=== PATIENT | male | born 1960 | race Two or more races ===

== ENCOUNTER 2024-08-19 13:40 | Outpatient (AMB) | payer BC, MEDICAID, SELFPAY ==
[2024-08-19 14:16] VITALS: BP 138/77; PULSE 82; RESP 18; TEMP 36.6; O2SAT 95; BMI 30.5
--- NOTE | 2024-08-19 14:16 | ACNOTE_ITS ---
Vital Signs 08/19/24 14:16 Height 1.8 m Height Method Stated Weight 99.45 kg Weight Measurement Method Standing Scale BMI 30.5 BP 138/77 H Blood Pressure Source Automatic Cuff Blood Pressure Location Left Upper Arm Position Sitting Respiration 18 Pulse 82 Pulse Source Monitor Temp 98 F Temp Source Oral Pulse Oximetry (%) 95 Oxygen Delivery Method Room Air Allergies/Meds Allergies & Medications Allergies No Known Allergies Allergy (Verified 08/19/24 14:17) Medication Reconciliation metformin 500 mg tablet 500 mg PO DAILY 02/08/24 [History Confirmed 08/19/24] MA Intake Visit Data Collection New Patient or Established: Established Patient (seen at [facility] within 3 years) Seen by Clinical Staff ONLY (RN/MA): No Reason for Visit:: ESTABLISH CARE Pain Present Currently: No Pain scale:: 0 Pain Scale Used: Lara-Ceballos/Numerical Demonstrator Knitting Required: No PCP or OBGYN visit in last 3 months: Yes Do You Feel Safe at Home: Yes Smoking Status Smoking Status: Never smoker Immunization / Flu Flu Vaccine in the Last 12 Months: Yes Flu Vaccine Exclusion Criteria: No Exclusion Criteria Past Medical History Past Medical History NEUROLOGIC: Negative Neurological Disorders, Seizures or Epilepsy CARDIAC: Negative Cardiac Disorders, Hypercholesterolemia, Congestive Heart Failure or Hypertension RESPIRATORY: Negative Chronic Obstructive Pulmonary Disease (COPD), Asthma or Pneumonia GASTROINTESTINAL: Negative Gastrointestinal Disorders GENITOURINARY: Negative Genitourinary Disorders or Renal Disease MUSCULOSKELETAL: Negative Arthritis, Fibromyalgia or Fractures ENDOCRINE: Negative Diabetes Mellitus Type 1 or Diabetes Mellitus Type 2 PSYCHO/SOCIAL: Negative Depression or Anxiety OTHER HISTORY: Negative Blood Transfusions or Anesthesia Reactions Social History SMOKING STATUS: Smoking status: Never smoker ALCOHOL: Alcohol Intake: Never Patient Portal Questionaires PHQ-9 PHQ-2 Over the last 2 weeks, how often have you been bothered by any of the following problems? 1. Little interest or pleasure in doing things: not at all 2. Feeling down, depressed, or hopeless: not at all Total score: 0 PHQ-9 3. Trouble falling or staying asleep, or sleeping too much: Not at all 4. Feeling tired or having little energy: Not at all 5. Poor appetite or overeating: Not at all 6. Feeling bad about yourself - or that you are a failure or have let yourself or your family down: Not at all 7. Trouble concentrating on things, such as reading the newspaper or watching television: Not at all 8. Moving or speaking so slowly that other people could have noticed? - Or the opposite - being so fidgety or restless that you have been moving around a lot more than usual: not at all 9. Thoughts that you would be better off or of hurting yourself in some way: Not at all Total score: 0 Source: Developed by Drs. Robby Hand, Sarah Florez, Cirilo Angulo and colleagues, with an educational anel from [employer]. Depression screen completed yes Social History Tobacco History Smoking Status: Never smoker Alcohol History Alcohol Intake: Never Domestic Abuse History Do You Feel Safe at Home: Yes Review of Systems Report any current symptoms Only answer those that you have currently: Past Medical History Past Medical History Have you ever been diagnosed with any of the following: Neurological Problems Seizures: No Epilepsy: No Cardiology Problems Hypercholesterolemia: No Congestive Heart Failure: No Hypertension: No Respiratory Problems Chronic Obstructive Pulmonary Disease (COPD): No Asthma: No Pneumonia: No Genital/Urinary Problems Renal Disease: No Musculoskeletal Problems Arthritis: No Fibromyalgia: No Fractures: No Endocrine Problems Diabetes Mellitus Type 1: No Diabetes Mellitus Type 2: No Psychologic Problems Depression: No Anxiety: No Other Problems Blood Transfusions: No Anesthesia Reactions: No History of Present Illness HPI Narrative 63 M with PMH of prediabetes and HLD was seen at the [facility] to establish health care. Patient states he recently changed insurance and had to find a new provider. Patient has no complaints and states he has been fairly healthy recently and trying to loose some weight. He stated he lost around 15lbs and has been taking his metformin which currently is his only medication. He had a colonoscopy in 02/2024 that had a polyp and showed a tubular adenoma therefore needs colonoscopy in 5 years (2028). He mentioned his tells him he snores andhe also wakes up with a dry mouth and has daytime sleepiness. At this time he had no other complaints. Review of Systems Review of Systems Narrative Review of Systems: Constitutional: Denies sweats, Denies weight loss/gain, Denies fever, Denies chills. HEENT: Denies hearing loss, Denies ear pain, Denies postnasal drip, Denies double vision, Denies blurry vision. Respiratory: Denies shortness of breath, Denies cough, Denies wheezing. Cardiovascular: Denies chest pain, Denies palpitations, Denies sudden loss of consciousness. GI: Denies blood in stool, Denies constipation, Denies abdominal pain, Denies difficulty swallowing, Denies nausea or vomit. : Denies urinary incontinence, Denies pain while urinating, Denies increased urinary frequency. MSK: Denies joint pain, Denies joint swelling, Denies numbness. Skin: Denies rash, Denies itching, Denies easy bruising. Neuro: Denies headaches, Denies dizziness, Denies seizures. Objective/Exam General General Appearance: alert, in no apparent distress, comfortable, cooperative and healthy appearing Head Head exam: atraumatic, normocephalic and normal inspection Eye Eye exam: Present normal appearance, PERRL and EOMI ENT ENT exam: Present normal exam, normal oropharynx, mucous membranes moist and other (Mallampati 4 ) Neck Neck exam: Present normal inspection and full ROM Resp Respiratory exam: Present normal lung sounds bilaterally Card Cardiovascular exam: Present regular rate, normal rhythm and normal heart sounds Abdominal Abdominal exam: Present soft and normal bowel sounds Extremities Extremities exam: Present normal inspection, full ROM and normal capillary refill Back Back exam: Present normal inspection and full ROM Neuro Neurological exam: Present alert, oriented X3, CN II-XII intact and normal gait Psych Psychiatric exam: Present normal affect and normal mood Skin Skin exam: Present warm, intact and normal color Assessment & Plan Diagnosis / Problem List (1) Pre-diabetes: Status: Acute Assessment & Plan: last a1c 6.4 in 11/2023 Takes metformin 500mg daily Plan: Will get labs (A1c and CMP) to better assess current glucose control regimen Continue metformin 500 daily for now (2) Hyperlipidemia: Status: Acute Assessment & Plan: Last lipid panel showed elevated LDL, cholesterol, and triglycerides Not on any medication Plan: Ordered lipid panel Will start statin on next visit (3) Prostate cancer screening: Status: Acute Assessment & Plan: Patient does not have any family history, but wanted to have screening Plan: Ordered PSA levels Plan F/U in 1 month for lab results Case disclosed with Attending Dr. Monse Ayoub PGY1 Office Procedures [facility] Level of Care Nursing/Assessment Patient Status: Established Patient Nursing Assessment/Reassessment: Medication Reconciliation, Update PMH in EMR and Vital Signs Coordination of Care: Complex Care and Chronic Disease 1-5, Consent,records obtained, informed consent, Education Simp Pt/Fam, Lab and Imaging orders, Results/Orders obtained and Staff clarify orders Established Patient Charge Established Patient Point Assignment: 105 Established Patient Point Charge: EP Level 3 (80-115)
== END 2024-08-19 14:31 | disposition home or self-care (01) ==
LOC: HODAHC 13:40
PROVIDERS: Supervising Provider Internal Medicine
DX: R73.03 Prediabetes (principal); E78.5 Hyperlipidemia, unspecified; Z79.84 Long term (current) use of oral hypoglycemic drugs
CPT/HCPCS: 99213; G0463

== ENCOUNTER 2024-09-24 08:50 | Outpatient (AMB) | payer MEDICAID, SELFPAY ==
[2024-09-24 09:12] VITALS: BP 137/74; PULSE 70; RESP 18; TEMP 36.8; O2SAT 96; BMI 30.4
--- NOTE | 2024-09-24 09:12 | ACNOTE_ITS ---
Vital Signs 09/24/24 09:12 Height 1.8 m Height Method Stated Weight 98.486 kg Weight Measurement Method Standing Scale BMI 30.4 BP 137/74 H Blood Pressure Source Automatic Cuff Blood Pressure Location Right Upper Arm Position Sitting Respiration 18 Pulse 70 Pulse Source Monitor Temp 98.2 F Temp Source Temporal Artery Scan Pulse Oximetry (%) 96 Oxygen Delivery Method Room Air Allergies/Meds Allergies & Medications Allergies No Known Allergies Allergy (Verified 09/24/24 09:12) Medication Reconciliation atorvastatin 40 mg tablet 40 mg PO QDAY 1 month #30 tabs 09/24/24 [Rx] metformin 500 mg tablet 500 mg PO DAILY 3 months #90 tabs 09/24/24 [Rx] MA Intake Visit Data Collection New Patient or Established: Established Patient (seen at [facility] within 3 years) Seen by Clinical Staff ONLY (RN/MA): No Pain Present Currently: No Pain scale:: 0 Pain Scale Used: Lara-Ceballos/Numerical Licensed Staff Mft Required: No PCP or OBGYN visit in last 3 months: No Hx Now: No Do You Feel Safe at Home: Yes Authorities Contacted: N/A Smoking Status Smoking Status: Never smoker Immunization / Flu Flu Vaccine in the Last 12 Months: No Flu Vaccine Exclusion Criteria: No Exclusion Criteria Past Medical History Past Medical History NEUROLOGIC: Negative Neurological Disorders, Seizures or Epilepsy CARDIAC: Negative Cardiac Disorders, Hypercholesterolemia, Congestive Heart Failure or Hypertension RESPIRATORY: Negative Chronic Obstructive Pulmonary Disease (COPD), Asthma or Pneumonia GASTROINTESTINAL: Negative Gastrointestinal Disorders GENITOURINARY: Negative Genitourinary Disorders or Renal Disease MUSCULOSKELETAL: Negative Arthritis, Fibromyalgia or Fractures ENDOCRINE: Negative Diabetes Mellitus Type 1 or Diabetes Mellitus Type 2 PSYCHO/SOCIAL: Negative Depression or Anxiety OTHER HISTORY: Negative Blood Transfusions or Anesthesia Reactions Social History SMOKING STATUS: Smoking status: Never smoker ALCOHOL: Alcohol Intake: Never Patient Portal Questionaires PHQ-9 PHQ-2 Over the last 2 weeks, how often have you been bothered by any of the following problems? 1. Little interest or pleasure in doing things: not at all PHQ-9 8. Moving or speaking so slowly that other people could have noticed? - Or the opposite - being so fidgety or restless that you have been moving around a lot m ore than usual: not at all Source: Developed by Drs. Robby Hand, Sarah Florez, Cirilo Angulo and colleagues, with an educational anel from [employer]. Social History Tobacco History Smoking Status: Never smoker Alcohol History Alcohol Intake: Never Domestic Abuse History Do You Feel Safe at Home: Yes Review of Systems Report any current symptoms Only answer those that you have currently: Past Medical History Past Medical History Have you ever been diagnosed with any of the following: Neurological Problems Seizures: No Epilepsy: No Cardiology Problems Hypercholesterolemia: No Congestive Heart Failure: No Hypertension: No Respiratory Problems Chronic Obstructive Pulmonary Disease (COPD): No Asthma: No Pneumonia: No Genital/Urinary Problems Renal Disease: No Musculoskeletal Problems Arthritis: No Fibromyalgia: No Fractures: No Endocrine Problems Diabetes Mellitus Type 1: No Diabetes Mellitus Type 2: No Psychologic Problems Depression: No Anxiety: No Other Problems Blood Transfusions: No Anesthesia Reactions: No History of Present Illness HPI Narrative Patient is a a 64 year old male with a past medical history of prediabetes and hyperlipidemia. 09/26/2024: Patient is here for follow up after establishing care with the [facility]. Patient is here for laboratory follow ups. Patient continues to take all medication as prescribed including Metformin. Patient has denied episodes of hyperglycemia, including polydipsia and polyuria. Positive for polyphagia. Patient tends to avoid sugary drinks such as sodas but does eat some junk foood such as cookies as they are readily available at home because of his young children. Advised to cut back on that are high carboyhdrate with increased sugar, such as donuts or cookies. Patient does not check blood pressure at home. Labs (09/08/2024) [facility], please upload: Fasting glucose 115 (H). BUN 18 Cr 0.95 AST 12 ALT 13 Lipid Panel Cholesterol 275, Triglycerides 489, HDL 35, LDL 147 ASCVD Risk: High Intensity recommend, 35.5% risk of cardiovascular event in the next 10 years. A1c 6.2% Advised to check blood pressure, patient may benefit from NICHELLE/ARCs. Repeat inoffice BP during next visit. Metfomrin refilled and Atorvastatin 40 mg Qday. Advised to follow up call back in myopathy is experienced. 3 months follow up with A1c and Lipid Panel. PMH Pre-diabetes recently started on Metformin Hyperlipidemia Surgical History: Denied past surgeries Family History: Maternal Parent-Diabetes, possible history of heart disease (unknown specific), ag 80 Paternal Parent-cancer, age 90 Social: Denied history of Alcohol Use Denied history of ilicit drug use Never smoker Self employed as [employer] Allergies None Objective/Exam Narrative Physical exam: Vitals: 137/74, HR 70, RR 18 General Appearance: Alert and Orientated x3, well-nourished male who is sitting on exam room Thorax/Lungs: Symmetrical with good expansion. Chest and back non-tender. Lungs resonant to percussion. Breath sounds vesicular without crackles, wheezes, or rhonchi Cardiovascular/Peripheral Vascular: No jugular venous distention noted. S1 and S2 heart sounds regular, no murmurs or extra heart sounds auscultated. No peripheral edema noted. Pedal pulses +3, no lesions noted. Abdomen: Bowel sounds are active. No tenderness to deep or light palpation. Assessment & Plan Diagnosis / Problem List (1) Pre-diabetes: Status: Acute Assessment & Plan: Patient advised to continue Metformin 500 mg once daily. Refilled sent. Patient counseled of hyperglycemia symptoms and advised to reduce carbohydrates that are either rich in sugar or fried/processed. Patient will need to return within 3 months to follow up on A1c repeat % . Plan: -Continue Metformin (2) Hyperlipidemia: Status: Acute Qualifiers: Hyperlipidemia type: mixed hyperlipidemia Qualified Code(s): E78.2 - Mixed hyperlipidemia Assessment & Plan: Patient has increased risk of CAD, given history of hyperlipidemia, prediabetes, obesity, and family history of diabetes/heart disease. Patient will be started on high intensity statin. ASCVD Risk: High Intensity recommend, 35.5% risk of cardiovascular event in the next 10 years. Plan: -Atorvastatin 40 mg PO HS -Follow up with Lipid Panel (3) Prostate cancer screening: Status: Acute Assessment & Plan: PSA within normal limits, PSA (08/2024). Denied urinary retention or problems initiating urination. (4) Obesity (BMI 30.0-34.9): Status: Acute Assessment & Plan: Patient counseled to decrease calorie intake and increase exericise by walking. Continue to monitor BP and A1c. Plan Master Problem List Hyperlipidemia Pre-diabetes Follow Up: Lipid and A1c via lab kristine, 3 month follow Health Maintenance: Pneumococcal NEEDED Shingles NEEDED Next Colonoscopy 2029 (near age 75) Prostate Cancer Screening 09/08/2024 2.1 Scores: ASCVD Risk: High Intensity recommend, 35.5% risk of cardiovascular event in the next 10 years. - The patient's plan was discussed with attending Dr. Monse Francis MD PGY1 Internal Medicine Office Procedures [facility] Level of Care Nursing/Assessment Patient Status: Established Patient Nursing Assessment/Reassessment: Medication Reconciliation, Update PMH in EMR and Vital Signs Coordination of Care: Complex Care and Chronic Disease 1-5, Consent,records obtained, informed consent, Education Simp Pt/Fam and Staff clarify orders Established Patient Charge Established Patient Point Assignment: 85 Established Patient Point Charge: EP Level 3 (80-115)
== END 2024-09-24 10:03 | disposition home or self-care (01) ==
PROVIDERS: Supervising Provider Internal Medicine
DX: E78.5 Hyperlipidemia, unspecified (principal); R73.03 Prediabetes; E66.9 Obesity, unspecified; Z68.30 Body mass index [BMI] 30.0-30.9, adult
CPT/HCPCS: 99213; G0463

== ENCOUNTER 2024-11-01 10:14 | Emergency (ER) | payer MEDICAID, SELFPAY ==
[2024-11-01 10:19] VITALS: BP 156/75; PULSE 69; RESP 18; TEMP 37.1; O2SAT 97; BMI 28.4
--- NOTE | 2024-11-01 10:28 | EDNOTE_ITS ---
ED Wound/Laceration-RME/HPI General Chief Complaint: Wound/Laceration Stated Complaint: LACERATION L MIDDLE FINGER Time Seen by Provider: 11/01/24 10:19 Arrival date/time: 11/01/24 10:14 64-year-old male presents emergency department today as he was working on a piece of lawn equipment patient obtain laceration to middle finger of the left hand Limitations: no limitations Related Data Previous Rx's ?Medication ?Instructions ?Recorded atorvastatin 40 mg tablet 40 mg PO QDAY 1 month #30 ta bs 09/24/24 metformin 500 mg tablet 500 mg PO DAILY 3 months #90 tabs 09/24/24 ibuprofen 800 mg tablet 800 mg PO TID PRN pain #30 t abs 11/01/24 tramadol 50 mg tablet 50 mg PO BID PRN pain #6 tab s 11/01/24 Allergies Allergy/AdvReac Type Severity Reaction Status Date / Time No Known Allergies Allergy Verified 11/05/24 14:07 Review of Systems Review of Systems Systems Reviewed: All systems reviewed, normal except as documented Constitutional Constitutional: Reports system reviewed and no additional complaints, except as documented, Denies fever(s) and Denies headache(s) Eyes Eyes: Reports system reviewed and no additional complaints, except as documented and Denies blurry vision ENT Ears, Nose, Mouth, and Throat: Reports system reviewed and no additional complaints, except as documented, Denies headache(s), Denies nasal congestion and Denies nasal discharge Cardiovascular Cardiovascular: Reports system reviewed and no additional complaints, except as documented, Denies chest pain and Denies dyspnea Respiratory Respiratory: Reports system reviewed and no additional complaints, except as documented, Denies chest congestion, Denies cough and Denies dyspnea Gastrointestinal Gastrointestinal: Reports system reviewed and no additional complaints, except as documented and Denies abdominal pain Integumentary/Breasts Skin/Breast: Reports system reviewed and no additional complaints, except as documented, Denies rash and Reports wounds (Avulsion distal tip of the skin middle finger left hand) Neurologic Neurologic: Reports system reviewed and no additional complaints, except as documented, Reports as per HPI and Denies headache(s) Past Medical History Past Medical History NEUROLOGIC: Negative Neurological Disorders, Seizures or Epilepsy CARDIAC: Negative Cardiac Disorders, Hypercholesterolemia, Congestive Heart Failure or Hypertension RESPIRATORY: Negative Chronic Obstructive Pulmonary Disease (COPD), Asthma or Pneumonia GASTROINTESTINAL: Negative Gastrointestinal Disorders GENITOURINARY: Negative Genitourinary Disorders or Renal Disease MUSCULOSKELETAL: Negative Musculoskeletal Disorders, Arthritis, Fibromyalgia or Fractures ENDOCRINE: Negative Diabetes Mellitus Type 1 or Diabetes Mellitus Type 2 PSYCHO/SOCIAL: Negative Depression or Anxiety OTHER HISTORY: Negative Blood Transfusions or Anesthesia Reactions Social History SMOKING STATUS: Never smoker ED Exam General Limitations: Present no limitations General appearance: Present alert and in no apparent distress Head Head exam: Present atraumatic Eye Eye exam: Present normal appearance, PERRL and EOMI ENT ENT exam: Present normal exam, normal oropharynx and mucous membranes moist Neck Neck exam: Present normal inspection, full ROM and trachea midline Chest Chest inspection: Present normal inspection and symmetric chest wall rise Respiratory Respiratory exam: Present normal lung sounds bilaterally Cardiovascular Cardiovascular exam: Present regular rate, normal rhythm and normal heart sounds Abdominal Exam Abdominal exam: Present soft and normal bowel sounds Extremities Exam Extremities exam: Present full ROM, tenderness and normal capillary refill; Absent joint swelling Back Exam Back exam: Present normal inspection and full ROM Neurological Exam Neurological exam: Present alert, oriented X3 and CN II-XII intact Psychiatric Psychiatric exam: Present normal affect and normal mood Skin Skin exam: Present warm, dry and other (Avulsion distal tip of the skin middle finger left hand) Course Quality Measures none Orders Category Date Time Status Set Up Suture Tray STAT Care 11/01/24 10:29 Completed TDap [Obtain Tdap Consent] X1 Care 11/01/24 11:02 Completed Wound Care NOW Care 11/01/24 10:29 Completed XR finger LT min 2V Stat Exams 11/01/24 10:29 Completed TET,DIP/PERT AC (Adult)-Tdap [Boostrix Adult (Tdap) Med 11/01/24 11:02 Discontinued Vacc] 0.5 ml IMI .ONCE ONE Vital Signs Vital signs: Vital Signs Temperature 98.7 F 11/01/24 10:19 Pulse Rate 69 11/01/24 10:19 Respiratory Rate 18 11/01/24 10:19 Blood Pressure 156/75 H 11/01/24 10:19 Pulse Oximetry (%) 97 11/01/24 10:19 Oxygen Delivery Method Room Air 11/01/24 10:19 O2 saturation 97% room air within normal limits Wound / Laceration MDM Narrative MDM Narrative:: 64-year-old male presents emergency department today as he was working on a piece of lawn equipment patient obtain laceration to middle finger of the left hand On exam patient has avulsion of skin left hand middle finger X-ray of the left hand obtained no fracture or dislocation noted Wound irrigated patient appears to have an avulsion there is no screen to bring back together suture. Surgicel applied dressing applied no bleeding at time of discharge Tetanus updated Patient discharged home in no distress to follow-up with primary care doctor in the next 24 to 48 hours and for any worsening symptoms to return to the ER immediately Patient data External records reviewed:: [facility] previous records Clinical information provided by:: patient Social determinants that could affect healthcare access:: none Patient has the following chronic illnesses:: See history How is presenting disease/condition affected by chronic disease/condition?: uneffected by Evaluation data The following diagnostics were reviewed and interpreted by me:: radiology exam(s) Lab and/or radiology exams considered but not ordered:: Radiology obtain Interpretation Summary: Reviewed by me Medications / Prescriptions Medications or Prescriptions considered but not ordered:: Given Medication administrations:: Medication Administration History Discontinued Medications Diphtheria/Tetanus/Acell Pertussis (Diphth,Pertuss(Acell),Tet Vac 0.5 Ml Syr- Adult) 0.5 ml IMi .ONCE ONE Stop: 11/01/24 11:03 Last Admin: 11/01/24 11:15 Dose: 0.5 ml Documented By: MF Given Consultations Consultation(s) initiated? (list below): No Diagnosis Wound Differential Diagnosis: laceration, abrasion and avulsion of skin Most likely diagnosis given after review of the tests above:: Avulsion of skin Admission Indicated Admission indicated?: not indicated Admission Request Was there a request for admission?: No Disposition Plan Disposition Plan: Discharge Discharge Attestation Discharge Attestation: The patient and all family members were given an opportunity to ask questions and understood the discharge instructions. Discharge instructions specifically effects, indications for sooner follow up or return to the emergency department, and the expected course of current diagnosis. Patient condition: Stable Discharge Plan Plan Patient Disposition: HOME (Self Care) Discharge Disposition comment: stable Prescriptions/Referrals Prescriptions/Med Rec: New ibuprofen 800 mg tablet 800 mg PO TID PRN (Reason: pain) Qty: 30 0RF tramadol 50 mg tablet 50 mg PO BID PRN (Reason: pain) Qty: 6 0RF No Action atorvastatin 40 mg tablet 40 mg PO QDAY 30 Days Qty: 30 3RF metformin 500 mg tablet 500 mg PO DAILY 90 Days Qty: 90 3RF Referrals: No Primary/Family,Physician [Referring Provider] - 11/03/24 Problem List Clinical Impression: Avulsion of skin of middle finger Patient/Caregiver Discharge Instructions Education Materials: ED Skin Avulsion Additional Instructions: Please follow up with your primary care doctor in the next 24-48hrs for any worsening symptoms return here immediately Print Language: Croatian Stand Alone Forms: [facility] Award Info., Patient Portal Info Letter Vaccines Vaccines Given During Stay: TDaP PA/QUALITY ASSURANCE ASSISTANT Supervising Physician PA/QUALITY ASSURANCE ASSISTANT Supervising Physician: dr hinton
--- NOTE | 2024-11-01 10:29 | XR_ITS ---
Examination: Fingers, left hand third digit 2 views Technique: AP, lateral left hand third digit 2 views Exam date and time: November 01, 2024 1036 hours INDICATIONS: Laceration to the hand with third digit pain to deep FINDINGS: Soft tissue defect third digit No acute fracture No foreign body IMPRESSION: No foreign body
[2024-11-01] MEDS: DIPHTH,PERTUSS(ACELL),TET VAC 0.5 ML SYR- ADULT IMi (11:15)
== END 2024-11-01 11:28 | disposition home or self-care (01) ==
PROVIDERS: Emergency Provider Family Medicine
DX: S61.203A Unspecified open wound of left middle finger without damage to nail, initial encounter (principal); W45.8XXA Other foreign body or object entering through skin, initial encounter; S61.213A Laceration without foreign body of left middle finger without damage to nail, initial encounter
CPT/HCPCS: 12001; 73140; 90471; 90715; 99284

== ENCOUNTER 2024-11-05 13:55 | Outpatient (AMB) | payer MEDICAID, SELFPAY ==
[2024-11-05 14:06] VITALS: BP 134/73; PULSE 70; RESP 18; TEMP 36.6; O2SAT 97; BMI 29.8
--- NOTE | 2024-11-05 14:06 | PD.RESCLINIC ---
Vital Signs 11/05/24 14:06 Height 1.83 m Height Method Stated Weight 99.96 kg Weight Measurement Method Standing Scale BMI 29.8 BP 134/73 H Blood Pressure Source Automatic Cuff Blood Pressure Location Right Upper Arm Position Sitting Respiration 18 Pulse 70 Pulse Source Monitor Temp 97.8 F Temp Source Temporal Artery Scan Pulse Oximetry (%) 97 Oxygen Delivery Method Room Air Allergies/Meds Allergies & Medications Allergies No Known Allergies Allergy (Verified 11/05/24 14:07) Medication Reconciliation atorvastatin 40 mg tablet 40 mg PO QDAY 1 month #30 tabs 09/24/24 [Rx Confirmed 11/05/24] metformin 500 mg tablet 500 mg PO DAILY 3 months #90 tabs 09/24/24 [Rx Confirmed 11/05/24] cephalexin 500 mg capsule 500 mg PO BID 7 days #14 caps 11/01/24 [Rx Confirmed 11/05/24] ibuprofen 800 mg tablet 800 mg PO TID PRN pain #30 tabs 11/01/24 [Rx Confirmed 11/05/24] tramadol 50 mg tablet 50 mg PO BID PRN pain #6 tabs 11/01/24 [Rx Confirmed 11/05/24] MA Intake Visit Data Collection New Patient or Established: Established Patient (seen at [facility] within 3 years) Seen by Clinical Staff ONLY (RN/MA): No Pain Present Currently: No Pain scale:: 0 Pain Scale Used: Lara-Ceballos/Numerical Apartment Maintenance Supervisor Required: No PCP or OBGYN visit in last 3 months: No Do You Feel Safe at Home: Yes Authorities Contacted: N/A Smoking Status Smoking Status: Never smoker Immunization / Flu Flu Vaccine in the Last 12 Months: No Flu Vaccine Exclusion Criteria: No Exclusion Criteria Past Medical History Past Medical History NEUROLOGIC: Negative Neurological Disorders, Seizures or Epilepsy CARDIAC: Negative Cardiac Disorders, Hypercholesterolemia, Congestive Heart Failure or Hypertension RESPIRATORY: Negative Chronic Obstructive Pulmonary Disease (COPD), Asthma or Pneumonia GASTROINTESTINAL: Negative Gastrointestinal Disorders GENITOURINARY: Negative Genitourinary Disorders or Renal Disease MUSCULOSKELETAL: Negative Arthritis, Fibromyalgia or Fractures ENDOCRINE: Negative Diabetes Mellitus Type 1 or Diabetes Mellitus Type 2 PSYCHO/SOCIAL: Negative Depression or Anxiety OTHER HISTORY: Negative Blood Transfusions or Anesthesia Reactions Social History SMOKING STATUS: Smoking status: Never smoker ALCOHOL: Alcohol Intake: Never Patient Portal Questionaires PHQ-9 PHQ-2 Over the last 2 weeks, how often have you been bothered by any of the following problems? 1. Little interest or pleasure in doing things: not at all PHQ-9 8. Moving or speaking so slowly that other people could have noticed? - Or the opposite - being so fidgety or restless that you have been moving around a lot more than usual: not at all Source: Developed by Drs. Robby Hand, Sarah Florez, Cirilo Angulo and colleagues, with an educational anel from [employer]. Social History Tobacco History Smoking Status: Never smoker Alcohol History Alcohol Intake: Never Domestic Abuse History Do You Feel Safe at Home: Yes Review of Systems Report any current symptoms Only answer those that you have currently: Past Medical History Past Medical History Have you ever been diagnosed with any of the following: Neurological Problems Seizures: No Epilepsy: No Cardiology Problems Hypercholesterolemia: No Congestive Heart Failure: No Hypertension: No Respiratory Problems Chronic Obstructive Pulmonary Disease (COPD): No Asthma: No Pneumonia: No Genital/Urinary Problems Renal Disease: No Musculoskeletal Problems Arthritis: No Fibromyalgia: No Fractures: No Endocrine Problems Diabetes Mellitus Type 1: No Diabetes Mellitus Type 2: No Psychologic Problems Depression: No Anxiety: No Other Problems Blood Transfusions: No Anesthesia Reactions: No History of Present Illness HPI Narrative 11/05/24: Patient with PMH of diabetes and HLD was discharged from [facility] ED past Sunday and a finger injury. He was working on his lawnmower when left middle finger got cut superficially. In the ED, get received tetanus shot, started on cephalexin, Ibuprofen and Tramadol. At this time, finger appears to be healing well with no active bleeding. Sensation is intact, strength 5/5, denies any pain. Will refer him to wound clinic for evaluation as well. Review of Systems Review of Systems Systems Reviewed: All systems reviewed, normal except as documented Objective/Exam Narrative Physical exam: General: Middle age male, No acute distress, cooperative HEENT: NCAT, No JVD noted. Mucosa moist. Pupils are equal and reactive to light bilaterally Cardiovascular: Normal S1 and S2. Regular rate and rhythm. Respiratory: Lungs are clear to auscultation bilaterally. No wheezing or crackles heard. Abdomen: Soft, nontender, not distended, normal bowel sounds. Skin: Warm to touch, dry, no rashes noted, left middle finger tip has wound with black area. No bleeding, mild erythema. No plain to palpation. Musculoskeletal: No gross injuries. Able to move all 4 extremities. No pitting edema Neuro: Alert and oriented x3. No focal neuro deficits. Psych: Normal affect and mood Assessment & Plan Diagnosis / Problem List (1) Avulsion of skin of middle finger: Status: Acute Assessment & Plan: 11/05/24: Was discharged from [facility] ED past Sunday and a finger injury. He was working on his lawnmower when left middle finger got cut superficially. In the ED, get received tetanus shot, started on cephalexin, Ibuprofen and Tramadol. Plan: -refer to wound clinic for evaluation and treatment -continue to monitor Orders: Referrals Wound Healing Office Procedures [facility] Level of Care Nursing/Assessment Patient Status: Established Patient Nursing Assessment/Reassessment: Medication Reconciliation, Update PMH in EMR and Vital Signs Coordination of Care: Complex Care and Chronic Disease 1-5, Consent,records obtained, informed consent, Education Simp Pt/Fam, Lab and Imaging orders and Staff clarify orders Established Patient Charge Established Patient Point Assignment: 100 Established Patient Point Charge: EP Level 3 (80-115)
== END 2024-11-05 14:29 | disposition home or self-care (01) ==
LOC: HODAHC 13:55
DX: S61.203D Unspecified open wound of left middle finger without damage to nail, subsequent encounter (principal); W27.1XXD Contact with garden tool, subsequent encounter
CPT/HCPCS: 99213; G0463

== ENCOUNTER 2024-12-04 08:45 | Outpatient (AMB) | payer MEDICAID, SELFPAY ==
[2024-12-04 09:02] VITALS: BP 120/74; PULSE 63; RESP 18; TEMP 36.3; O2SAT 96; BMI 28.7
--- NOTE | 2024-12-04 09:02 | PD.RESCLINIC ---
Vital Signs 12/04/24 09:02 Height 1.83 m Height Method Stated Weight 96.275 kg Weight Measurement Method Standing Scale BMI 28.7 BP 120/74 Blood Pressure Source Automatic Cuff Blood Pressure Location Left Upper Arm Position Sitting Respiration 18 Pulse 63 Pulse Source Monitor Temp 97.4 F Temp Source Oral Pulse Oximetry (%) 96 Oxygen Delivery Method Room Air Allergies/Meds Allergies & Medications Allergies No Known Allergies Allergy (Verified 12/04/24 09:03) Medication Reconciliation ibuprofen 800 mg tablet 800 mg PO TID PRN pain #30 tabs 11/01/24 [Rx Confirmed 12/04/24] atorvastatin 40 mg tablet 40 mg PO QHS 1 month #30 tabs 12/04/24 [Rx] metformin 500 mg tablet 500 mg PO BID 3 months #180 tabs 12/04/24 [Rx] MA Intake Visit Data Collection New Patient or Established: Established Patient (seen at [facility] within 3 years) Seen by Clinical Staff ONLY (RN/MA): No Pain Present Currently: No Pain scale:: 0 Pain Scale Used: Lara-Tucker/Numerical PCP or OBGYN visit in last 3 months: Yes Do You Feel Safe at Home: Yes Authorities Contacted: N/A Smoking Status Smoking Status: Never smoker Immunization / Flu Flu Vaccine in the Last 12 Months: No Flu Vaccine Exclusion Criteria: No Exclusion Criteria Past Medical History Past Medical History NEUROLOGIC: Negative Neurological Disorders, Seizures or Epilepsy CARDIAC: Negative Cardiac Disorders, Hypercholesterolemia, Congestive Heart Failure or Hypertension RESPIRATORY: Negative Chronic Obstructive Pulmonary Disease (COPD), Asthma or Pneumonia GASTROINTESTINAL: Negative Gastrointestinal Disorders GENITOURINARY: Negative Genitourinary Disorders or Renal Disease MUSCULOSKELETAL: Negative Arthritis, Fibromyalgia or Fractures ENDOCRINE: Negative Diabetes Mellitus Type 1 or Diabetes Mellitus Type 2 PSYCHO/SOCIAL: Negative Depression or Anxiety OTHER HISTORY: Negative Blood Transfusions or Anesthesia Reactions Social History SMOKING STATUS: Smoking status: Never smoker ALCOHOL: Alcohol Intake: Never Patient Portal Questionaires PHQ-9 PHQ-2 Over the last 2 weeks, how often have you been bothered by any of the following problems? 1. Little interest or pleasure in doing things: not at all PHQ-9 8. Moving or speaking so slowly that other people could have noticed? - Or the opposite - being so fidgety or restless that you have been moving around a lot more than usual: not at all Source: Developed by Drs. Robby Hand, Sarah Florez, Cirilo Angulo and colleagues, with an educational anel from [employer]. Social History Tobacco History Smoking Status: Never smoker Alcohol History Alcohol Intake: Never Domestic Abuse History Do You Feel Safe at Home: Yes Review of Systems Report any current symptoms Only answer those that you have currently: Past Medical History Past Medical History Have you ever been diagnosed with any of the following: Neurological Problems Seizures: No Epilepsy: No Cardiology Problems Hypercholesterolemia: No Congestive Heart Failure: No Hypertension: No Respiratory Problems Chronic Obstructive Pulmonary Disease (COPD): No Asthma: No Pneumonia: No Genital/Urinary Problems Renal Disease: No Musculoskeletal Problems Arthritis: No Fibromyalgia: No Fractures: No Endocrine Problems Diabetes Mellitus Type 1: No Diabetes Mellitus Type 2: No Psychologic Problems Depression: No Anxiety: No Other Problems Blood Transfusions: No Anesthesia Reactions: No History of Present Illness HPI Narrative 11/05/24: Patient with PMH of diabetes and HLD was discharged from [facility] ED past Sunday and a finger injury. He was working on his lawnmower when left middle finger got cut superficially. In the ED, get received tetanus shot, started on cephalexin, Ibuprofen and Tramadol. At this time, finger appears to be healing well with no active bleeding. Sensation is intact, strength 5/5, denies any pain. Will refer him to wound clinic for evaluation as well. 12/04/24: Patient presented for follow-up in the clinic. He stated that he has been taking his medications with compliance but takes atorvastatin sometimes in the morning. He has been doing exercise and walking every day. He does not record his blood sugars since he was told that he is prediabetic. Blood pressure has been stable at home. No new symptoms like chest pain, breathing difficulty, flulike symptoms, numbness and tingling sensation in lower extremities or any other complaint. He reported only that he has been having changes in his vision and progressive nearsightedness. Labs were discussed with the patient. Blood glucose 114, BUN 14, creatinine 0.96. Electrolytes unremarkable. Liver enzymes unremarkable. Lipid panel showed total cholesterol 221, triglycerides 216, HDL 50, VLDL 38 and LDL 133. A1c came back again at 6.2. Last was also 6.2. Patient had a slight drop in his weight from 99 Kg ->96 Kg. He was informed that he should increase his metformin to 500 mg twice daily instead of once since he does not have any GI side effects. Follow-up in 2 months. Review of Systems Review of Systems Systems Reviewed: All systems reviewed, normal except as documented Objective/Exam Narrative Physical exam: GENERAL APPEARANCE: AxOx4, generally well-appearing male in no acute distress. HEENT: NC, AT. MMM. EOMI, clear conjunctiva, oropharynx clear. NECK: Supple without lymphadenopathy. No stiffness or restricted ROM. HEART: Regular rate and regular rhythm, normal S1/S2, no m/r/g LUNGS: CTAB, moving air well. No crackles or wheezes are heard. ABDOMEN: Soft, nontender, nondistended with good bowel sounds heard. BACK: No CVAT, no obvious deformity. EXTREMITIES: Without cyanosis, clubbing or edema. NEUROLOGICAL: Grossly nonfocal. Alert and oriented, moving all 4 extremities. CN not formally tested but appear grossly intact. Observed to ambulate with normal gait. Skin: Warm and dry without any rash. Psych: appropriate mood and affect Assessment & Plan Diagnosis / Problem List (1) Pre-diabetes: Status: Acute Assessment & Plan: - Patient was diagnosed with prediabetes with A1c of 6.2. -New labs from 11/19/2024 showed A1c again 6.2. - Kidney function showed BUN 14, creatinine 0.96, electrolytes unremarkable. Calcium 9.8, albumin 4.5, liver enzymes unremarkable Plan: - Metformin dose increased from 500 mg once to 500 mg twice daily -Recommended to continue statin therapy - Will need new A1c after 3 months in April - No signs of diabetic neuropathy at this point - Vision changes noted - Encouraged on improving diet with low-carb and performing exercise daily - Recommended annual foot examination and eye examination (2) Hyperlipidemia: Status: Acute Qualifiers: Hyperlipidemia type: mixed hyperlipidemia Qualified Code(s): E78.2 - Mixed hyperlipidemia Assessment & Plan: - Labs from 11/19/2024 showed LDL 133, cholesterol 221, triglycerides 216, HDL 50, VLDL 38 Plan: - Recommended to continue atorvastatin 40 mg at night - Daily exercise and walk - Eating healthy foods vegetables with fiber and lean meat (3) Obesity (BMI 30.0-34.9): Status: Acute Assessment & Plan: - Currently weigh 96.2 kg. Previous weight 99 kg Plan: - Encouraged on modification of diet and exercise - Recommended to eat low-carb diet avoiding bread, pasta, red meat and pizza - No signs of sleep apnea noted (4) Near-sightedness: Status: Acute Assessment & Plan: - Patient uses glasses for nearsightedness/myopia. He has been having progressive changes in his vision. Plan: - Referred to ophthalmology, Dr. Odalys Bustamante for further follow-up - Recommended to use glasses at the time of reading Plan of care discussed with attending physician, Dr. Monse Jacinto MD, PGY 3 Orders: Referrals Ophthalmology E66.811 - Obesity, class 1, E78.2 - Mixed hyperlipidemia, H52.10 - Myopia, unspecified eye, R73.03 - Prediabetes Additional Assessment Attending note: I, Leon Shea MD, attest that I was physically present for the lee portions of the service and evaluated the patient with the resident and I reviewed and discussed the case with the resident and agree with the resident's findings and plans of care as documented above. Leon Shea MD Physician Billing Established Patient Established Patient: E/M Level 3-CPT 25071 Office Procedures [facility] Level of Care Nursing/Assessment Patient Status: Established Patient Nursing Assessment/Reassessment: Medication Reconciliation, Update PMH in EMR and Vital Signs Coordination of Care: Complex Care and Chronic Disease 1-5, Complex Care/Chronic Disease 5 or more, Results/Orders obtained and Staff clarify orders Established Patient Charge Established Patient Point Assignment: 105 Established Patient Point Charge: Level 3 (52-115)
== END 2024-12-04 09:38 | disposition home or self-care (01) ==
LOC: HODAHC 08:45
PROVIDERS: Supervising Provider Internal Medicine; Visit Provider Student in an Organized Health Care Education/Training Program
DX: R73.03 Prediabetes (principal); E78.2 Mixed hyperlipidemia; E66.9 Obesity, unspecified; Z68.28 Body mass index [BMI] 28.0-28.9, adult; H52.10 Myopia, unspecified eye
CPT/HCPCS: 99213; G0463

== ENCOUNTER 2025-02-06 12:59 | Outpatient (AMB) | payer MEDICAID, SELFPAY ==
--- NOTE | 2025-02-06 13:21 | ACNOTE_ITS ---
Vital Signs 02/06/25 13:22 Height 1.83 m Height Method Stated Weight 97.976 kg Weight Measurement Method Standing Scale BMI 29.2 BP 155/62 H Blood Pressure Source Automatic Cuff Blood Pressure Location Right Upper Arm Position Sitting Respiration 19 Pulse 73 Pulse Source Monitor Temp 98.2 F Temp Source Temporal Artery Scan Pulse Oximetry (%) 96 Oxygen Delivery Method Room Air Allergies/Meds Allergies & Medications Allergies No Known Allergies Allergy (Verified 02/06/25 13:23) Medication Reconciliation ibuprofen 800 mg tablet 800 mg PO TID PRN pain #30 tabs 11/01/24 [Rx Confirmed 1 04/08/24] atorvastatin 40 mg tablet 40 mg PO QHS 1 month #30 tabs 12/04/24 [Rx Confirmed 02/06/25] metformin 500 mg tablet 500 mg PO BID 3 months #180 tabs 12/04/24 [Rx Confirmed 02/06/25] MA Intake Visit Data Collection New Patient or Established: Established Patient (seen at [facility] within 3 years) Seen by Clinical Staff ONLY (RN/MA): No Pain Present Currently: No Pain scale:: 0 Pain Scale Used: Lara-Ceballos/Numerical Slab Tripper Required: No PCP or OBGYN visit in last 3 months: Yes Do You Feel Safe at Home: Yes Authorities Contacted: N/A Smoking Status Smoking Status: Never smoker Immunization / Flu Flu Vaccine in the Last 12 Months: No Flu Vaccine Exclusion Criteria: No Exclusion Criteria Past Medical History Past Medical History NEUROLOGIC: Negative Neurological Disorders, Seizures or Epilepsy CARDIAC: Negative Cardiac Disorders, Hypercholesterolemia, Congestive Heart Failure or Hypertension RESPIRATORY: Negative Chronic Obstructive Pulmonary Disease (COPD), Asthma or Pneumonia GASTROINTESTINAL: Negative Gastrointestinal Disorders GENITOURINARY: Negative Genitourinary Disorders or Renal Disease MUSCULOSKELETAL: Negative Arthritis, Fibromyalgia or Fractures ENDOCRINE: Negative Diabetes Mellitus Type 1 or Diabetes Mellitus Type 2 PSYCHO/SOCIAL: Negative Depression or Anxiety OTHER HISTORY: Negative Blood Transfusions or Anesthesia Reactions Social History SMOKING STATUS: Smoking status: Never smoker ALCOHOL: Alcohol Intake: Never Patient Portal Questionaires PHQ-9 PHQ-2 Over the last 2 weeks, how often have you been bothered by any of the following problems? 1. Little interest or pleasure in doing things: not at all PHQ-9 8. Moving or speaking so slowly that other people could have noticed? - Or the opposite - being so fidgety or restless that you have been moving around a lot more than usual: not at all Source: Developed by Drs. Robby Hand, Sarah Florez, Cirilo Angulo and colleagues, with an educational anel from [employer]. Social History Tobacco History Smoking Status: Never smoker Alcohol History Alcohol Intake: Never Domestic Abuse History Do You Feel Safe at Home: Yes Review of Systems Report any current symptoms Only answer those that you have currently: Past Medical History Past Medical History Have you ever been diagnosed with any of the following: Neurological Problems Seizures: No Epilepsy: No Cardiology Problems Hypercholesterolemia: No Congestive Heart Failure: No Hypertension: No Respiratory Problems Chronic Obstructive Pulmonary Disease (COPD): No Asthma: No Pneumonia: No Genital/Urinary Problems Renal Disease: No Musculoskeletal Problems Arthritis: No Fibromyalgia: No Fractures: No Endocrine Problems Diabetes Mellitus Type 1: No Diabetes Mellitus Type 2: No Psychologic Problems Depression: No Anxiety: No Other Problems Blood Transfusions: No Anesthesia Reactions: No History of Present Illness HPI Narrative 11/05/24: Patient with PMH of diabetes and HLD was discharged from [facility] ED past Sunday and a finger injury. He was working on his lawnmower when left middle finger got cut superficially. In the ED, get received tetanus shot, started on cephalexin, Ibuprofen and Tramadol. At this time, finger appears to be healing well with no active bleeding. Sensation is intact, strength 5/5, denies any pain. Will refer him to wound clinic for evaluation as well. 12/04/24: Patient presented for follow-up in the clinic. He stated that he has been taking his medications with compliance but takes atorvastatin sometimes in the morning. He has been doing exercise and walking every day. He does not record his blood sugars since he was told that he is prediabetic. Blood pressure has been stable at home. No new symptoms like chest pain, breathing difficulty, flulike symptoms, numbness and tingling sensation in lower extremities or any other complaint. He reported only that he has been having changes in his vision and progressive nearsightedness. Labs were discussed with the patient. Blood glucose 114, BUN 14, creatinine 0.96. Electrolytes unremarkable. Liver enzymes unremarkable. Lipid panel showed total cholesterol 221, triglycerides 216, HDL 50, VLDL 38 and LDL 133. A1c came back again at 6.2. Last was also 6.2. Patient had a slight drop in his weight from 99 Kg - >96 Kg. He was informed that he should increase his metformin to 500 mg twice daily instead of once since he does not have any GI side effects. Follow-up in 2 months. 02/06: Pt is seen in office for follow up visit. Pt completed labs at [facility] in oct 2024. Currently pt has no complaints, no recent hospitalization of illness. Pt went on vacation for 2 weeks to [place] and states was no complaint with his medications and diet. BP is elevated during this office visit however pt does not want to start any medications. Pt will do life style modification and keep a log of BP daily. and if it continues to be high then will consider starting losartan 25mg daily. Will also repeat labs in May. Pt denies fever, chills, N/V. pt will be getting a flu shot at [facility] this week. Review of Systems Review of Systems Systems Reviewed: All systems reviewed, normal except as documented Objective/Exam Narrative Physical exam: GENERAL: A&Ox3 . Awake, Not in acute distress NEURO: no focal neurological deficits HEENT: Atraumatic, Normocephalic. mucous membranes moist. Eyes open, symmetrical, & clear HEART: Normal Heart Sounds LUNGS: Clear to auscultation with no wheezing or crackles. ABDOMEN: soft, non-distended, non-tender, bowel sounds heard, no guarding or rebound tenderness SKIN: No Rash or ecchymoses EXTREMITIES: No edema, tenderness, able to move all 4 extremities, pedal pulses palpated Assessment & Plan Diagnosis / Problem List (1) Elevated BP reading w/ no diagnosis of HTN: Status: Acute Assessment & Plan: in office BP is 155/62 -Pt does not want to take medications despite multiple reads over the course of last 6 months. Pt would like to try dietary modification adn keep a log at home and if it continues to be elevated then will start antihypertensive Plan: -will review BP log next appointment. If SBP >130's then will start the patient on losartan 25mg daily. (2) Pre-diabetes: Status: Acute Assessment & Plan: -New labs from 11/19/2024 showed A1c again 6.2. - Kidney function showed BUN 14, creatinine 0.96, electrolytes unremarkable. Calcium 9.8, albumin 4.5, liver enzymes unremarkable Plan: - Metformin dose increased from 500 mg once to 500 mg twice daily -Recommended to continue statin therapy - Will need new A1c after 3 months in - No signs of diabetic neuropathy at this point - Encouraged on improving diet with low-carb and performing exercise daily - Recommended annual foot examination and eye examination (3) Hyperlipidemia: Status: Acute Qualifiers: Hyperlipidemia type: mixed hyperlipidemia Qualified Code(s): E78.2 - Mixed hyperlipidemia Assessment & Plan: - Labs from 11/19/2024 showed LDL 133, cholesterol 221, triglycerides 216, HDL 50, VLDL 38 Plan: - Recommended to continue atorvastatin 40 mg at night - Daily exercise and walk - Eating healthy foods vegetables with fiber and lean meat -will repeat lipid panel in may Office Procedures [facility] Level of Care Nursing/Assessment Patient Status: Established Patient Nursing Assessment/Reassessment: Medication Reconciliation, Update PMH in EMR and Vital Signs Coordination of Care: Complex Care and Chronic Disease 1-5, Complex Care/Chronic Disease 5 or more, Consent,records obtained, informed consent, Lab and Imaging orders, Results/Orders obtained and Staff clarify orders Established Patient Charge Established Patient Point Assignment: 125 Established Patient Point Charge: Level 4 (120-155)
[2025-02-06 13:22] VITALS: BP 155/62; PULSE 73; RESP 19; TEMP 36.8; O2SAT 96; BMI 29.2
== END 2025-02-06 14:29 | disposition home or self-care (01) ==
PROVIDERS: Supervising Provider Internal Medicine
DX: R03.0 Elevated blood-pressure reading, without diagnosis of hypertension (principal); R73.03 Prediabetes; E78.2 Mixed hyperlipidemia; Z71.3 Dietary counseling and surveillance
CPT/HCPCS: 99214; G0463

== ENCOUNTER 2025-03-18 13:53 | Outpatient (AMB) | payer MEDICAID, SELFPAY ==
[2025-03-18 14:03] VITALS: BP 146/81; PULSE 89; RESP 19; TEMP 36.4; O2SAT 95; BMI 29.5
--- NOTE | 2025-03-18 14:03 | ACNOTE_ITS ---
Vital Signs 03/18/25 14:03 Height 1.83 m Height Method Stated Weight 98.997 kg Weight Measurement Method Standing Scale BMI 29.5 BP 146/81 H Blood Pressure Source Automatic Cuff Blood Pressure Location Right Upper Arm Position Sitting Respiration 19 Pulse 89 Pulse Source Monitor Temp 97.5 F Temp Source Temporal Artery Scan Pulse Oximetry (%) 95 Oxygen Delivery Method Room Air Allergies/Meds Allergies & Medications Allergies No Known Allergies Allergy (Verified 03/18/25 14:04) Medication Reconciliation ibuprofen 800 mg tablet 800 mg PO TID PRN pain #30 tabs 11/01/24 [Rx Confirmed 1 05/19/24] atorvastatin 40 mg tablet 40 mg PO QHS 1 month #30 tabs 12/04/24 [Rx Confirmed 03/18/25] metformin 500 mg tablet 500 mg PO BID 3 months #180 tabs 12/04/24 [Rx Confirmed 03/18/25] losartan 25 mg tablet 25 mg PO QDAY hYPERTENSION #30 tabs 03/18/25 [Rx] MA Intake Visit Data Collection New Patient or Established: Established Patient (seen at [facility] within 3 years) Seen by Clinical Staff ONLY (RN/MA): No Pain Present Currently: No Pain Location: Unable to identify Pain scale:: 0 Pain Scale Used: [employer] Required: No PCP or OBGYN visit in last 3 months: Yes Do You Feel Safe at Home: Yes Authorities Contacted: N/A Smoking Status Smoking Status: Never smoker Immunization / Flu Flu Vaccine in the Last 12 Months: No Flu Vaccine Exclusion Criteria: Refused by Patient Past Medical History Past Medical History NEUROLOGIC: Negative Neurological Disorders, Seizures or Epilepsy CARDIAC: Negative Cardiac Disorders, Hypercholesterolemia, Congestive Heart Failure or Hypertension RESPIRATORY: Negative Chronic Obstructive Pulmonary Disease (COPD), Asthma or Pneumonia GASTROINTESTINAL: Negative Gastrointestinal Disorders GENITOURINARY: Negative Genitourinary Disorders or Renal Disease MUSCULOSKELETAL: Negative Arthritis, Fibromyalgia or Fractures ENDOCRINE: Negative Diabetes Mellitus Type 1 or Diabetes Mellitus Type 2 PSYCHO/SOCIAL: Negative Depression or Anxiety OTHER HISTORY: Negative Blood Transfusions or Anesthesia Reactions Social History SMOKING STATUS: Smoking status: Never smoker ALCOHOL: Alcohol Intake: Never Patient Portal Questionaires PHQ-9 PHQ-2 Over the last 2 weeks, how often have you been bothered by any of the following problems? 1. Little interest or pleasure in doing things: not at all 2. Feeling down, depressed, or hopeless: not at all Total score: 0 PHQ-9 8. Moving or speaking so slowly that other people could have noticed? - Or the opposite - being so fidgety or restless that you have been moving around a lot more than usual: not at all Source: Developed by Drs. Robby Hand, Sarah Florez, Cirilo Angulo and colleagues, with an educational anel from [employer]. Social History Tobacco History Smoking Status: Never smoker Alcohol History Alcohol Intake: Never Domestic Abuse History Do You Feel Safe at Home: Yes Review of Systems Report any current symptoms Only answer those that you have currently: Past Medical History Past Medical History Have you ever been diagnosed with any of the following: Neurological Problems Seizures: No Epilepsy: No Cardiology Problems Hypercholesterolemia: No Congestive Heart Failure: No Hypertension: No Respiratory Problems Chronic Obstructive Pulmonary Disease (COPD): No Asthma: No Pneumonia: No Genital/Urinary Problems Renal Disease: No Musculoskeletal Problems Arthritis: No Fibromyalgia: No Fractures: No Endocrine Problems Diabetes Mellitus Type 1: No Diabetes Mellitus Type 2: No Psychologic Problems Depression: No Anxiety: No Other Problems Blood Transfusions: No Anesthesia Reactions: No History of Present Illness HPI Narrative 11/05/24: Patient with PMH of diabetes and HLD was discharged from [facility] ED past Sunday and a finger injury. He was working on his lawnmower when left middle finger got cut superficially. In the ED, get received tetanus shot, started on cephalexin, Ibuprofen and Tramadol. At this time, finger appears to be healing well with no active bleeding. Sensation is intact, strength 5/5, denies any pain. Will refer him to wound clinic for evaluation as well. 12/04/24: Patient presented for follow-up in the clinic. He stated that he has been taking his medications with compliance but takes atorvastatin sometimes in the morning. He has been doing exercise and walking every day. He does not record his blood sugars since he was told that he is prediabetic. Blood pressure has been stable at home. No new symptoms like chest pain, breathing difficulty, flulike symptoms, numbness and tingling sensation in lower extremities or any other complaint. He reported only that he has been having changes in his vision and progressive nearsightedness. Labs were discussed with the patient. Blood glucose 114, BUN 14, creatinine 0.96. Electrolytes unremarkable. Liver enzymes unremarkable. Lipid panel showed total cholesterol 221, triglycerides 216, HDL 50, VLDL 38 and LDL 133. A1c came back again at 6.2. Last was also 6.2. Patient had a slight drop in his weight from 99 Kg - >96 Kg. He was informed that he should increase his metformin to 500 mg twice daily instead of once since he does not have any GI side effects. Follow-up in 2 months. 02/06: Pt is seen in office for follow up visit. Pt completed labs at [facility] in oct 2024. Currently pt has no complaints, no recent hospitalization of illness. Pt went on vacation for 2 weeks to [place] and states was no complaint with his medications and diet. BP is elevated during this office visit however pt does not want to start any medications. Pt will do life style modification and keep a log of BP daily. and if it continues to be high then will consider starting losartan 25mg daily. Will also repeat labs in May. Pt denies fever, chills, N/V. pt will be getting a flu shot at [facility] this week. 03/18: Pt is in office for follow up appointment for blood pressure check and physical for adult [facility] center. Pt BP in office today is 146/81 and still hesitant to start antihypertensive. However explained to pt the importances of well controlled BP especially in coexisting diabetes. Pt has agreed to take low dose losartan if systolic >130. Pt is started on losartan. Pt is advised to keep a daily journal of BP and make dietary changes including limiting red meat to 1-2 times per week and consume low salt diet. Pt reports he travels to [place] every month and eats lots of greasy food because its the food is delicious there . pt wants to participate in the [facility] center to keep himself busy and participate in daily activities as well as exercise. Pt needs health clearance and requested if PPD test can be obtained at there center. Otherwise pt has no new complains, denies any recent hospitalizations, denies headaches, or sick contacts. he does have frequent travel history to [place] but healthwise remains stable. Pt is compliant with all his other home meds include metformin and atorvastatin. Review of Systems Review of Systems Systems Reviewed: All systems reviewed, normal except as documented Objective/Exam Narrative Physical exam: GENERAL: A&Ox3 . Awake, Not in acute distress NEURO: no focal neurological deficits HEENT: Atraumatic, Normocephalic. mucous membranes moist. Eyes open, symmetrical, & clear HEART: Normal Heart Sounds LUNGS: Clear to auscultation with no wheezing or crackles. ABDOMEN: soft, non-distended, non-tender, bowel sounds heard, no guarding or rebound tenderness SKIN: No Rash or ecchymoses EXTREMITIES: No edema, tenderness, able to move all 4 extremities, pedal pulses palpated Assessment & Plan Diagnosis / Problem List (1) Primary hypertension: Status: Acute Assessment & Plan: BP in office is 146/81 Plan: -pt is advised to check BP daily -take losartan 25mg daily (may hold if SBP <130) -Continue excercise, dietary changes and low salt diet (2) Pre-diabetes: Status: Acute Assessment & Plan: -New labs from 11/19/2024 showed A1c again 6.2. - Kidney function showed BUN 14, creatinine 0.96, electrolytes unremarkable. Calcium 9.8, albumin 4.5, liver enzymes unremarkable Plan: -Continue Metformin 500 mg twice daily -Recommended to continue statin therapy - Will need new A1c after 3 months in May - No signs of diabetic neuropathy at this point - Encouraged on improving diet with low-carb and performing exercise daily - Recommended annual foot examination and eye examination (3) Hyperlipidemia: Status: Acute Qualifiers: Hyperlipidemia type: mixed hyperlipidemia Qualified Code(s): E78.2 - Mixed hyperlipidemia Assessment & Plan: - Labs from 11/19/2024 showed LDL 133, cholesterol 221, triglycerides 216, HDL 50, VLDL 38 Plan: - Recommended to continue atorvastatin 40 mg at night - Daily exercise and walk - Eating healthy foods vegetables with fiber and lean meat -will repeat lipid panel in may Office Procedures [facility] Level of Care Nursing/Assessment Patient Status: Established Patient Nursing Assessment/Reassessment: Medication Reconciliation, Update PMH in EMR and Vital Signs Coordination of Care: Complex Care and Chronic Disease 1-5, Complex Care/Chronic Disease 5 or more, Education Simp Pt/Fam, Lab and Imaging orders, Results/Orders obtained and Staff clarify orders Established Patient Charge Established Patient Point Assignment: 135 Established Patient Point Charge: Level 4 (120-155)
== END 2025-03-18 15:13 | disposition home or self-care (01) ==
LOC: HODAHC 13:53
PROVIDERS: Supervising Provider Internal Medicine
DX: I10 Essential (primary) hypertension (principal); R73.03 Prediabetes; E78.2 Mixed hyperlipidemia
CPT/HCPCS: 99214; G0463